=== PATIENT | female | born 1945 | race Caucasian/White ===

== ENCOUNTER 2018-12-16 22:48 | Emergency (ER) | payer OTHER, MEDICARE ==
[2018-12-16 23:49] LABS: Absolute Lymphocytes (CBC) 2.7 K/uL (0.7-4.9); Absolute Monocytes 0.6 K/uL (0.1-1.3); Absolute Neutrophil 7.2 K/uL (1.8-8.0); Basophils % 0.5 % (0-1.3); Eosinophils % 1.3 % (0-4.4); Hematocrit 41.4 % (36.0-45.0); Lymphocytes % 24.9 % (15.3-44.8); MPV 7.9 fL (7.6-11.3); Monocytes % 5.7 % (3.3-12.3); RBC Red Blood Cell Count 4.92 M/uL (3.86-4.86)
[2018-12-16] MEDS ORDERED: FENTANYL CITR 100 MCG/2 ML ONE (23:57)
[2018-12-16] MEDS ORDERED: PROMETHAZINE 25 MG/ML VIAL ONE (23:57)
[2018-12-16] MEDS ORDERED: NA CHLORIDE 0.9% 1,000 ML ONE (23:57)
[2018-12-17 00:06] LABS: Albumin 3.3 g/dL (3.4-5.0); Bilirubin Direct 0.1 mg/dL (0-0.2); Bilirubin Total 0.3 mg/dL (0.2-1.0); Protein, Total 7.2 g/dL (6.4-8.2)
[2018-12-17 00:07] LABS: Potassium 2.8 mmol/L (3.5-5.1)
[2018-12-17] MEDS ORDERED: KCL 20 MEQ/100 mL IVPB 20 MEQ/100 ML BAG IV ONE ×2 (00:34→02:12)
[2018-12-17 02:05] LABS: Urine Bacteria <20 /HPF (<20); Urine Culture Reflex Order NOT NEEDED; Urine RBC NONE SEEN /HPF (NONE SEEN)
[2018-12-17] MEDS ORDERED: DICYCLOMINE HCL 10 MG CAP ONE (02:57)
[2018-12-17] MEDS ORDERED: POTASSIUM 25 MEQ EFFERV TAB ONE (02:57)
[2018-12-17] MEDS ORDERED: NA CHLORIDE 0.9% 250 ML ONE (03:05)
[2018-12-17 03:19] LABS: Urine Blood TRACE (NEG); Urine Glucose NEGATIVE (NEG); Urine Protein NEGATIVE (NEG)
--- NOTE | 2018-12-17 03:21 | EDPHYS ---
Physician Documentation [facility] Name: Lyn Lazar Age: 73 yrs Sex: Female : 1945 Arrival Date: 12/16/2018 Time: 22:53 Bed 24 Private MD: out of town, doctor ED Physician Aiden Saavedra HPI: 12/17 00:08 This 73 yrs old Female presents to ER via Ambulatory with complaints of snw Abdominal Pain. 00:08 The patient presents with abdominal pain in the lower abdomen. Onset: The snw symptoms/episode began/occurred gradually, 2 month(s) ago, and became worse this morning. The symptoms do not radiate. Associated signs and symptoms: Pertinent positives: diarrhea, nausea, Pertinent negatives: blood in stools, dysuria, fever. The symptoms are described as achy, constant. Severity of pain: At its worst the pain was moderate severe. It is unknown whether or not the patient has had similar symptoms in the past. sees Dr. Salinas, dx with gastric stricture and ulcer.. Historical: - Allergies: 12/16 23:06 PENICILLINS; la1 23:06 Sulfa (Sulfonamide Antibiotics); la1 - PMHx: 23:06 Hypertension; Hypothyroidism; hypokalemia; la1 - PSHx: 23:06 Cholecystectomy; Appendectomy; Hysterectomy; la1 - Immunization history:: Adult Immunizations up to date. - Social history:: Smoking status: Patient/guardian denies using tobacco. - Ebola Screening: : No symptoms or risks identified at this time. ROS: 12/17 00:07 Constitutional: Negative for fever, chills, and weight loss, Eyes: Negative for injury, snw pain, redness, and discharge, ENT: Negative for injury, pain, and discharge, Neck: Negative for injury, pain, and swelling, Cardiovascular: Negative for chest pain, palpitations, and edema, Respiratory: Negative for shortness of breath, cough, wheezing, and pleuritic chest pain, Back: Negative for injury and pain, : Negative for injury, bleeding, discharge, and swelling, MS/Extremity: Negative for injury and deformity, Skin: Negative for injury, rash, and discoloration, Neuro: Negative for headache, weakness, numbness, tingling, and seizure. Abdomen/GI: Positive for abdominal pain, nausea, diarrhea, of the right lower quadrant and left lower quadrant. Exam: 00:05 Constitutional: This is a well developed, well nourished patient who is awake, alert, snw and in no acute distress. Head/Face: Normocephalic, atraumatic. Eyes: Pupils equal round and reactive to light, extra-ocular motions intact. Lids and lashes normal. Conjunctiva and sclera are non-icteric and not injected. Cornea within normal limits. Periorbital areas with no swelling, redness, or edema. ENT: Nares patent. No nasal discharge, no septal abnormalities noted. Tympanic membranes are normal and external auditory canals are clear. Oropharynx with no redness, swelling, or masses, exudates, or evidence of obstruction, uvula midline. Mucous membranes moist. Neck: Trachea midline, no thyromegaly or masses palpated, and no cervical lymphadenopathy. Supple, full range of motion without nuchal rigidity, or vertebral point tenderness. No Meningismus. Chest/axilla: Normal chest wall appearance and motion. Nontender with no deformity. No lesions are appreciated. Cardiovascular: Regular rate and rhythm with a normal S1 and S2. No gallops, murmurs, or rubs. Normal PMI, no JVD. No pulse deficits. Respiratory: Lungs have equal breath sounds bilaterally, clear to auscultation and percussion. No rales, rhonchi or wheezes noted. No increased work of breathing, no retractions or nasal flaring. Back: No spinal tenderness. No costovertebral tenderness. Full range of motion. Skin: Warm, dry with normal turgor. Normal color with no rashes, no lesions, and no evidence of cellulitis. MS/ Extremity: Pulses equal, no cyanosis. Neurovascular intact. Full, normal range of motion. Neuro: Awake and alert, GCS 15, oriented to person, place, time, and situation. Cranial nerves II-XII grossly intact. Motor strength 5/5 in all extremities. Sensory grossly intact. Cerebellar exam normal. Normal gait. Psych: Awake, alert, with orientation to person, place and time. Behavior, mood, and affect are within normal limits. 00:05 Abdomen/GI: Inspection: abdomen appears normal, Bowel sounds: hyperactive, in all quadrants, Palpation: moderate abdominal tenderness, in the suprapubic area, right lower quadrant and left lower quadrant, Rectal exam: rectal tone normal, Stool: guaiac negative, hemorrhoid(s), external. Vital Signs: 12/16 23:06 BP 150 / 66; Pulse 81; Resp 16; Temp 98.7; Pulse Ox 98% on R/A; Weight 79.38 kg; Height la1 5 ft. 4 in. (162.56 cm); 12/17 00:49 BP 131 / 59; Pulse 71 RA; Resp 18 S; Pulse Ox 96% on R/A; rv 01:30 BP 124 / 64; Pulse 74; Resp 15 S; Pulse Ox 100% on R/A; rv 02:00 BP 119 / 58; Pulse 73; Resp 18 S; Pulse Ox 99% on R/A; rv 02:30 BP 129 / 70; Pulse 77; Resp 19 S; Pulse Ox 98% on R/A; rv 03:00 BP 116 / 70; Pulse 71; Resp 22 S; Pulse Ox 99% on R/A; rv 12/16 23:06 Body Mass Index 30.04 (79.38 kg, 162.56 cm) la1 MDM: 12/16 22:59 Patient medically screened. snw 12/17 03:21 Data reviewed: vital signs, nurses notes. Data interpreted: Pulse oximetry: on room air snw is 99 %. Interpretation: normal. Counseling: I had a detailed discussion with the patient and/or guardian regarding: the historical points, exam findings, and any diagnostic results supporting the discharge/admit diagnosis, lab results, the need for outpatient follow up, to return to the emergency department if symptoms worsen or persist or if there are any questions or concerns that arise at home. Special discussion: Based on the history and exam findings, there is no indication for further emergent testing or inpatient evaluation. I discussed with the patient/guardian the need to see the doctor of podiatric medicine for further evaluation of the symptoms. I discussed with the patient/guardian the need to see the primary care provider for further evaluation of the symptoms. 12/16 23:31 Order name: Basic Metabolic Panel snw 12/16 23:31 Order name: CBC with Diff snw 12/16 23:31 Order name: Creatinine for Radiology snw 12/16 23:31 Order name: Hepatic Function snw 12/16 23:31 Order name: Lipase snw 12/16 23:32 Order name: Occult Blood--Ancillary snw 12/16 23:51 Order name: CBC with Automated Diff; Complete Time: 00:05 EDMS 12/17 00:06 Order name: Urine Culture replaced by [facility] 12/17 00:06 Order name: Urine Microscopic Only replaced by [facility] 12/17 00:08 Order name: Basic Metabolic Panel; Complete Time: 00:08 EDMS 12/17 00:08 Order name: Liver (Hepatic) Function; Complete Time: 00:08 EDMS 12/17 00:08 Order name: Lipase; Complete Time: 00:08 EDMS 12/17 00:08 Order name: Creatinine (Radiology Only); Complete Time: 00:11 EDMS 12/17 01:43 Order name: Occult Blood--Ancillary; Complete Time: 01:46 EDMS 12/16 23:31 Order name: IV Saline Lock; Complete Time: 23:37 snw 12/16 23:31 Order name: Labs collected and sent; Complete Time: 23:37 snw 12/16 23:31 Order name: CT Abd/Pelvis - W/Contrast replaced by [facility] 12/16 23:42 Order name: EKG; Complete Time: 23:42 replaced by [facility] 12/16 23:42 Order name: EKG - Nurse/Tech; Complete Time: 02:07 w 12/17 00:06 Order name: Urine Dipstick-Ancillary (obtain specimen); Complete Time: 02:06 w 12/17 02:05 Order name: Urine Microscopic Only; Complete Time: 02:06 EDMS 12/17 03:00 Order name: Urine Dipstick--Ancillary (enter results) 12/17 03:19 Order name: Urine Dipstick-Ancillary; Complete Time: 03:20 EDMS Administered Medications: 12/16 23:53 Drug: NS 0.9% 1000 ml Route: IV; Rate: 125 ml/hr; Site: left antecubital; 12/17 03:32 Follow up: Response: No adverse reaction; IV Status: Order to discontinue infusion 4 12/16 23:53 Drug: fentaNYL (PF) 25 mcg Route: IVP; Site: left antecubital; mn12/17 02:07 Follow up: Response: Pain is decreased rv 12/16 23:53 Drug: Phenergan 6.25 mg Route: IVP; Site: left antecubital; 12/17 02:07 Follow up: Response: Nausea is decreased rv 00:27 Drug: Potassium Chloride 20 mEq Route: IV; Rate: calculated rate; Site: left rv antecubital; 02:05 Follow up: IV Status: Completed infusion rv 02:05 Drug: Potassium Chloride 20 mEq Route: IV; Rate: calculated rate; Site: left rv antecubital; 03:32 Follow up: Response: No adverse reaction; IV Status: Completed infusion jb4 02:52 Drug: Potassium Effervescent Tablet 50 mEq Route: PO; rv 02:52 Drug: Bentyl 20 mg Route: PO; rv Disposition: 06:40 Co-signature as Attending Physician, Aiden Saavedra MD. rn Disposition: 12/17/18 03:20 Discharged to Home. Impression: Lower abdominal pain, unspecified, Hypokalemia, Diarrhea, unspecified. - Condition is Stable. - Discharge Instructions: Abdominal Pain, Adult, Food Choices to Help Relieve Diarrhea, Adult, Diarrhea, Adult, Potassium Content of Foods, Hypokalemia. - Prescriptions for Bentyl 20 mg Oral Tablet - take 1 tablet by ORAL route every 6 hours As needed; 20 tablet. - Medication Reconciliation Form, Thank You Letter, Antibiotic Education, Prescription Opioid Use form. - Follow up: Cash Salinas; When: 2 - 3 days; Reason: Recheck today's complaints, Continuance of care, Re-evaluation by your physician. Follow up: Emergency Department; When: As needed; Reason: Worsening of condition. Signatures: Dispatcher [employer] EDMS Brittny Weber, PI/SENIOR RESEARCH ASSOCIATE-C PI/SENIOR RESEARCH ASSOCIATE-Csnw Aiden Saavedra MD MD rn Attema, Lee RN RN la1 Michael Iverson RN RN jb4 Bran Berrios RN RN rv Corrections: (The following items were deleted from the chart) 03:33 03:20 12/17/2018 03:20 Discharged to Home. Impression: Lower abdominal pain, jb4 unspecified; Hypokalemia; Diarrhea, unspecified. Condition is Stable. Discharge Instructions: Abdominal Pain, Adult, Food Choices to Help Relieve Diarrhea, Adult, Diarrhea, Adult, Potassium Content of Foods, Hypokalemia. Prescriptions for Bentyl 20 mg Oral Tablet - take 1 tablet by ORAL route every 6 hours As needed; 20 tablet. and Forms are Medication Reconciliation Form, Thank You Letter, Antibiotic Education, Prescription Opioid Use. Follow up: Cash Salinas; When: 2 - 3 days; Reason: Recheck today's complaints, Continuance of care, Re-evaluation by your physician. Follow up: Emergency Department; When: As needed; Reason: Worsening of condition. snw
--- NOTE | 2018-12-17 03:21 | ER ---
Nurse's Notes [facility] Name: Lyn Lazar Age: 73 yrs Sex: Female : 1945 Arrival Date: 12/16/2018 Time: 22:53 Bed 24 Private MD: out of town, doctor Diagnosis: Lower abdominal pain, unspecified;Hypokalemia;Diarrhea, unspecified Presentation: 12/16 23:04 Presenting complaint: Patient states: Decreased PO intake for the last month with some la1 abd pain, today with bad lower abd pain. Pt reports diarrhea for the last 2 months as well. Denies fevers or blood in stool. Transition of care: patient was not received from another setting of care. Onset of symptoms was December 16, 2018. Risk Assessment: Do you want to hurt yourself or someone else? Patient reports no desire to harm self or others. Initial Sepsis Screen: Does the patient meet any 2 criteria? No. Patient's initial sepsis screen is negative. Does the patient have a suspected source of infection? No. Patient's initial sepsis screen is negative. Care prior to arrival: None. 23:04 Method Of Arrival: Ambulatory la1 23:04 Acuity: BRENT 3 la1 Historical: - Allergies: 23:06 PENICILLINS; la1 23:06 Sulfa (Sulfonamide Antibiotics); la1 - PMHx: 23:06 Hypertension; Hypothyroidism; hypokalemia; la1 - PSHx: 23:06 Cholecystectomy; Appendectomy; Hysterectomy; la1 - Immunization history:: Adult Immunizations up to date. - Social history:: Smoking status: Patient/guardian denies using tobacco. - Ebola Screening: : No symptoms or risks identified at this time. Screenin:07 Abuse screen: Denies threats or abuse. Nutritional screening: No deficits noted. la1 Tuberculosis screening: No symptoms or risk factors identified. Fall Risk None identified. Assessment: 23:06 General: Appears in no apparent distress. Behavior is calm, cooperative. Pain: la1 Complains of pain in right lower quadrant and left lower quadrant. Neuro: Level of Consciousness is awake, alert, obeys commands, Oriented to person, place, time, situation. Cardiovascular: Capillary refill < 3 seconds Patient's skin is warm and dry. Respiratory: Airway is patent Respiratory effort is even, unlabored, Respiratory pattern is regular, symmetrical, Breath sounds are clear bilaterally. GI: Bowel sounds present X 4 quads. Abd is soft X 4 quads Abdomen is tender to palpation in right lower quadrant and left lower quadrant Reports diarrhea. : No signs and/or symptoms were reported regarding the genitourinary system. 12/17 01:00 Reassessment: Patient appears in no apparent distress at this time. Patient and/or rv family updated on plan of care and expected duration. Pain level reassessed. Patient is alert, oriented x 3, equal unlabored respirations, skin warm/dry/pink. 03:00 Reassessment: Patient appears in no apparent distress at this time. Patient and/or rv family updated on plan of care and expected duration. Pain level reassessed. Patient is alert, oriented x 3, equal unlabored respirations, skin warm/dry/pink. Vital Signs: 12/16 23:06 BP 150 / 66; Pulse 81; Resp 16; Temp 98.7; Pulse Ox 98% on R/A; Weight 79.38 kg; Height la1 5 ft. 4 in. (162.56 cm); 12/17 00:49 BP 131 / 59; Pulse 71 RA; Resp 18 S; Pulse Ox 96% on R/A; rv 01:30 BP 124 / 64; Pulse 74; Resp 15 S; Pulse Ox 100% on R/A; rv 02:00 BP 119 / 58; Pulse 73; Resp 18 S; Pulse Ox 99% on R/A; rv 02:30 BP 129 / 70; Pulse 77; Resp 19 S; Pulse Ox 98% on R/A; rv 03:00 BP 116 / 70; Pulse 71; Resp 22 S; Pulse Ox 99% on R/A; rv 12/16 23:06 Body Mass Index 30.04 (79.38 kg, 162.56 cm) la1 ED Course: 12/16 22:53 Patient arrived in ED. mr 22:54 out of town, doctor is Private Physician. mr 22:55 [facility] snw 22:55 Aiden Saavedra MD is Attending Physician. snw 23:04 Faustino Hastings, BO is Primary Nurse. la1 23:05 Triage completed. la1 23:06 Arm band placed on left wrist. la1 23:07 Bed in low position. Call light in reach. la1 12/17 00:07 Notified Nurse Practitioner and/or Physician Internet Marketing Specialist of a critical lab result(s), fc potassium of 2.8. 00:20 Note: . Note: Dropped off oral contrast at 2335. Patient was nauseous and was unable to kw1 tolerate. Given Phenergan. Has not completed drinking oral contrast at this time.. 00:34 No provider procedures requiring assistance completed. Inserted saline lock: 22 gauge la1 in left antecubital area, using aseptic technique. Blood collected. 01:[address] via wheelchair. kw1 01:12 CT completed. Patient tolerated procedure well. Patient moved back from [place]. kw1 02:06 Urine Culture Sent. rv 02:07 Urine Microscopic Only Sent. rv 03:20 Cash Salinas MD is Referral Physician. snw 03:31 IV discontinued, intact, bleeding controlled. jb4 10:14 CT Abd/Pelvis - W/Contrast In Process Unspecified. EDMS Administered Medications: 12/16 23:53 Drug: NS 0.9% 1000 ml Route: IV; Rate: 125 ml/hr; Site: left antecubital; nd1 12/17 03:32 Follow up: Response: No adverse reaction; IV Status: Order to discontinue infusion [facility] 12/16 23:53 Drug: fentaNYL (PF) 25 mcg Route: IVP; Site: left antecubital; nd12/17 02:07 Follow up: Response: Pain is decreased rv 12/16 23:53 Drug: Phenergan 6.25 mg Route: IVP; Site: left antecubital; nd1 12/17 02:07 Follow up: Response: Nausea is decreased rv 00:27 Drug: Potassium Chloride 20 mEq Route: IV; Rate: calculated rate; Site: left rv antecubital; 02:05 Follow up: IV Status: Completed infusion rv 02:05 Drug: Potassium Chloride 20 mEq Route: IV; Rate: calculated rate; Site: left rv antecubital; 03:32 Follow up: Response: No adverse reaction; IV Status: Completed infusion jb4 02:52 Drug: Potassium Effervescent Tablet 50 mEq Route: PO; rv 02:52 Drug: Bentyl 20 mg Route: PO; rv Outcome: 03:20 Discharge ordered by . snw 03:31 Discharged to home ambulatory, with family. jb4 03:31 Condition: stable 03:31 Discharge instructions given to patient, family, Instructed on discharge instructions, follow up and referral plans. medication usage, Demonstrated understanding of instructions, follow-up care, medications, Prescriptions given X 1. 03:33 Patient left the ED. jb4 Signatures: Dispatcher [employer] EDMS Brittny Weber, COMPANY SECRETARY-C COMPANY SECRETARY-Csnw HensonElvia mr KristenYvonne, RN RN fc Faustino Hastings RN RN la1 Michael Iverson RN RN jb4 Rebeka Patel kw1 Bran Berrios RN RN rv
--- NOTE | 2018-12-18 11:30 | RAD REPORT ---
EXAM DESCRIPTION: CT - Abdomen Pelvis W Contrast - 12/17/2018 2:37 am CLINICAL HISTORY: 73-year-old female with lower abdominal pain TECHNIQUE: Axial CT imaging of the abdomen and pelvis was performed following the administration of intravenous contrast.. Sagittal and coronal reconstructed images were then performed. The CT stud y is performed according to ALARA (as low as reasonably achievable) or ALARA/IMAGE GENTLY, with autom atic adjustment of mA and/or kV according to patient size. Performed on: 12/17/2018 at 1:15 AM. COMPARISON: None FINDINGS: Lung bases: The lung bases are clear. There is minimal right basilar atelectasis and/or fi brosis. Liver: The liver is normal in size and configuration. No focal hepatic abnormalities are identified. Liver attenuation is within normal limits. Spleen: The spleen is normal is size, configuration and attenuation. Gallbladder and bile duct: The gallbladder is surgically absent. There is no biliary ductal dilatat ion. Pancreas: The pancreas is grossly normal in size and configuration. Adrenal Glands: The adrenal glands are normal in size and configuration. Kidneys: The kidneys are normal in size and configuration. There is no evidence of hydronephrosis. Th ere is no evidence of nephrolithiasis. There is an approximately 1 cm benign-appearing cyst along the lower pole of the right kidney. Stomach: The stomach is grossly normal. There is no definite hiatal hernia. Bowel: The bowel gas pattern is non specific and non obstructive. Appendix: The appendix is not clearly visualized on this examination. There is no definite CT evidenc e to suggest acute appendicitis. Free air: There is no evidence of free air. Free fluid: There is no evidence of free fluid. Vasculature: The aorta is normal in caliber and contour. The inferior vena cava is grossly unremarkab le. Lymphadenopathy: No pathologic lymphadenopathy is identified. Bladder: The bladder is well distended and smooth in contour. Reproductive: The uterus is surgically absent Bones: No acute osseous abnormalities are identified. There is degenerative disc disease at L5-S1. Soft tissues: No focal soft tissue abnormalities are identified. IMPRESSION: 1. No evidence of acute intra-abdominal or intrapelvic pathology. 2. Remote cholecystectomy and hysterectomy. Electronically signed by: Sharon Parks DO 12/17/2018 2:27 AM CATALYST RECOVERY OPERATOR Due to temporary technical issues with the PACS/Fluency reporting system, reports are being signed by the in house radiologist as a courtesy to ensure prompt reporting. The interpreting radiologist is f ully responsible for the content of the report.
== END 2018-12-17 03:33 | disposition home or self-care (01) ==
LOC: ER 22:48
DX: R10.30 Lower abdominal pain, unspecified (principal); R19.7 Diarrhea, unspecified; E87.6 Hypokalemia; I10 Essential (primary) hypertension; Z88.0 Allergy status to penicillin; Z88.2 Allergy status to sulfonamides
CPT/HCPCS: 36415; 74177; 80048; 80076; 82272; 83690; 85025; 96361; 96365; 96366; 96375; 99284; J2550; J3010; J7030; Q9967; 81003; 81015